=== PATIENT | male | born 1945 | race Two or more races ===

== ENCOUNTER 2019-06-10 09:45 | Inpatient (IN) | payer OTHER ==
[~2019-06-10] VITALS: Ht 157.5 cm; Wt 74.4 kg
[2019-06-10] MEDS ORDERED: LEVOTHYROXINE25 MCG PO (12:26)
[2019-06-10] MEDS ORDERED: AVAPRO150 MG PO (12:27)
[2019-06-10] MEDS ORDERED: NORVASC2.5 M1 PO (12:27)
[2019-06-10] MEDS ORDERED: FENOFIBRATE50 MG PO (12:27)
[2019-06-10] MEDS ORDERED: ATORVASTATIN CA20 MG PO (12:28)
[2019-06-10] MEDS ORDERED: RESTORIL30 M1 PO (12:28)
== END 2019-06-21 16:01 | disposition home or self-care (01) | DRG 330 ==
LOC: SURG 09:45 → O/R 06-19 05:00 → SURH 06-19 05:00 → SURG 06-19 09:00 → SURH 06-19 15:41
PROVIDERS: ADMIT Colon & Rectal Surgery
PROC: 07TB4ZZ Resection of Mesenteric Lymphatic, Percutaneous Endoscopic Approach (ICD-10-PCS; 2019-06-19)
PROC: 0DJD8ZZ Inspection of Lower Intestinal Tract, Via Natural or Artificial Opening Endoscopic (ICD-10-PCS; 2019-06-19)
PROC: 0DTG4ZZ Resection of Left Large Intestine, Percutaneous Endoscopic Approach (ICD-10-PCS; principal; 2019-06-19 09:00)
DX: C18.5 Malignant neoplasm of splenic flexure (principal); K92.1 Melena; K63.89 Other specified diseases of intestine; R59.0 Localized enlarged lymph nodes

== ENCOUNTER 2019-06-18 05:11 | Day surgery (SDC) | payer OTHER ==
[~2019-06-18 05:11] MED LIST: ATORVASTATIN CA20 MG PO; AVAPRO150 MG PO; FENOFIBRATE50 MG PO; LEVOTHYROXINE25 MCG PO; NORVASC2.5 M1 PO; RESTORIL30 M1 PO
== END 2019-06-18 09:25 | disposition home or self-care (01) ==
LOC: AMB-ENDOS 05:11
DX: C18.5 Malignant neoplasm of splenic flexure (principal); K64.1 Second degree hemorrhoids